=== PATIENT | male | born 2000 | race Two or more races ===

== ENCOUNTER 2020-04-12 12:20 | Outpatient (CLI) | payer BC | END 2020-04-12 12:21 | disposition home or self-care (01) | LOC: COV 12:20 | PROVIDERS: ATTEND Family Medicine | DX: R05 Cough (principal); R53.83 Other fatigue; J02.9 Acute pharyngitis, unspecified; R09.81 Nasal congestion; Z20.828 Contact with and (suspected) exposure to other viral communicable diseases ==